=== PATIENT | female | born 1955 | race Caucasian/White ===

== ENCOUNTER 2019-05-01 06:46 | Day surgery (SDC) | payer BC ==
[2019-04-26 13:25] LABS: Absolute Lymphocytes (CBC) 2.6 K/uL (0.7-4.9); Hematocrit 38.2 % (36.0-45.0); Lymphocytes % 37.5 % (15.3-44.8); MPV 9.1 fL (7.6-11.3); RBC Red Blood Cell Count 4.07 M/uL (3.86-4.86)
[2019-04-26 13:35] LABS: Protime INR 0.96
[2019-04-26 13:39] LABS: BUN Blood Urea Nitrogen 18 mg/dL (7-18); Bicarbonate 29 mmol/L (21-32); Glucose Level 82 mg/dL (74-106); Potassium 4.1 mmol/L (3.5-5.1); Sodium Level 142 mmol/L (136-145)
--- NOTE | 2019-04-26 13:39 | RAD REPORT ---
EXAM DESCRIPTION: Sue Lundberg (2 Views)04/26/2019 1:19 pm CLINICAL HISTORY: Preop for cardiac catheterization COMPARISON: 2007 FINDINGS: The lungs appear clear of acute infiltrate. The heart is normal size IMPRESSION: No acute abnormalities displayed
--- OUTSIDE RECORDS SUMMARY | 2019-05-01 06:50 | XMS REPORT ---
:1955 Author Organization e[employer] Care Team Providers Name Role Phone Sun, Na Provider Role Unavailable Allergies No Known Allergies Problems Problem Type Condition Code Onset Dates Condition Status Problem COPD, mild J44.9 Active Problem Low thyroid stimulating hormone R94.6 Active (TSH) level Problem Alkaline phosphatase raised R74.8 Active Problem Other Alzheimer's disease G30.8 Active Problem Depression F32.9 Active Problem Need for Z23 Active xugunvmeea-zhumawa-eechkjrdi (Tdap) vaccine Problem Restless leg syndrome G25.81 Active Problem Hiatal hernia K44.9 Active Problem Dementia in other diseases F02.80 Active classified elsewhere without behavioral disturbance Problem Encounter for routine adult health Z00.00 Active examination without abnormal findings Problem Encounter for screening for Z12.31 Active malignant neoplasm of breast Problem Normal pelvic exam Z01.419 Active Problem Osteopenia of multiple sites M85.89 Active Problem Vitamin B12 deficiency E53.8 Active Problem Hypothyroidism E03.9 Active Problem Insomnia G47.00 Active Problem GERD (gastroesophageal reflux K21.9 Active disease) Problem Dementia without behavioral F03.90 Active disturbance, unspecified dementia type Problem Allergic rhinitis, seasonal J30.2 Active Problem Anxiety F41.9 Active Problem Liver hemangioma D18.03 Active Problem Elevated blood pressure reading R03.0 Active without diagnosis of hypertension Problem Former very heavy cigarette smoker Z87.891 Active (more than 40 per day) Medications Medication Code Code Instructions Start End Status Dosage System Date Date Levothyroxine [facility] 82059180387 100 MCG Orally Active 1 capsule Sodium Once a day on an empty stomach in the morning Results No Known Results Summary Purpose eClinicalWorks Submission
--- OUTSIDE RECORDS SUMMARY | 2019-05-01 06:50 | XMS REPORT ---
:1955 Author Organization e[employer] Care Team Providers Name Role Phone Sun, Na Provider Role Unavailable Allergies, Adverse Reactions, Alerts Substance Reaction Event Type Hydrocodone-Homatropine Info Not Available Drug Allergy Problems Problem Type Condition Code Onset Dates Condition Status Assessment Former very heavy cigarette smoker Z87.891 Active (more than 40 per day) Assessment Alkaline phosphatase raised R74.8 Active Assessment Vitamin B12 deficiency E53.8 Active Assessment Restless leg syndrome G25.81 Active Assessment Dementia without behavioral F03.90 Active disturbance, unspecified dementia type Assessment Anxiety F41.9 Active Problem Dementia without behavioral F03.90 Active disturbance, unspecified dementia type Assessment Low thyroid stimulating hormone R94.6 Active (TSH) level Problem Allergic rhinitis, seasonal J30.2 Active Assessment COPD, mild J44.9 Active Problem Former very heavy cigarette smoker Z87.891 Active (more than 40 per day) Problem Alkaline phosphatase raised R74.8 Active Problem COPD, mild J44.9 Active Problem Osteopenia of multiple sites M85.89 Active Problem Encounter for routine adult health Z00.00 Active examination without abnormal findings Problem Hiatal hernia K44.9 Active Problem Need for Z23 Active vpinovhcjw-qjaclnw-jmophoamt (Tdap) vaccine Assessment Hypothyroidism E03.9 Active Problem Encounter for screening for Z12.31 Active malignant neoplasm of breast Problem Low thyroid stimulating hormone R94.6 Active (TSH) level Problem Normal pelvic exam Z01.419 Active Problem Liver hemangioma D18.03 Active Problem Insomnia G47.00 Active Problem GERD (gastroesophageal reflux K21.9 Active disease) Problem Restless leg syndrome G25.81 Active Problem Depression F32.9 Active Problem Anxiety F41.9 Active Problem Elevated blood pressure reading R03.0 Active without diagnosis of hypertension Problem Vitamin B12 deficiency E53.8 Active Problem Hypothyroidism E03.9 Active Medications Medication Code Code Instructions Start End Status Dosage System Date Date ProAir [facility] [id number] 108 (90 Base) Active 2 puffs as RespiClick MCG/ACT needed Inhalation every 6 hrs Clobetasol [facility] 06618590809 0.05 % Active 1 application Propionate Externally to affected Twice a day area Zyrtec Allergy [facility] 46488324914 10 MG Orally Active 1 tablet Once a day Incruse Ellipta [facility] 16494079589 62.5 MCG/INH Active 1 puff Inhalation Once a day Vitamin D3 [facility] 57756699270 50,000 PO once Active one tab a week Levothyroxine [facility] 64782226993 125 MCG Orally Inactive 1 tablet on Sodium Once a day an empty stomach in the morning Namzaric [facility] 35189218357 28 mg/10 mg Apr Inactive 1 tab Orally daily 2017 Flonase [facility] 39454173131 50 MCG/ACT Active 1 spray in Nasally Once a each nostril day Alprazolam ND 17896440684 0.5 MG Orally May 04, Active 1 tablet Twice a day 2017 Levothyroxine [facility] 03956999490 100 MCG Orally Active 1 capsule on Sodium Once a day an empty stomach in the morning Gabapentin [facility] 67510110645 300 MG Orally Active 2 capsule Once a day before bedtime Vitamin B12 [facility] 66685539091 1000 MCG Active 1 tablet Orally Once a day Align [facility] 80116833715 - Orally Active not defined Requip [facility] 02113630287 0.5 MG Orally Active 1 tablet 1 to Once a day 3 hours before bedtime Venlafaxine HCl [facility] 61654690436 37.5 MG Orally Active 1 capsule ER Once a day with food Cymbalta [facility] 26573576391 60 MG Active TAKE ONE CAPSULE BY MOUTH EVERY DAY Mobic [facility] 52658135434 15 MG Orally Active 1 tablet Once a day ICaps Areds 2 [facility] 77064596710 - Orally Active not defined ProAir [facility] 23581763331 108 (90 Base) Active 2 puffs as RespiClick MCG/ACT needed Inhalation every 6 hrs Results No Known Results Summary Purpose eClinicalWorks Submission
--- OUTSIDE RECORDS SUMMARY | 2019-05-01 06:50 | XMS REPORT | Clinical Summary ---
:1955 Author Organization [facility] [employer] Address [address] [place] [id number] Care Team Providers Name Role Phone Asked, No Pcp Primary Care Provider Unavailable Allergies Not on File Medications Not on file Active Problems Not on file Encounters Date Type Specialty Care Team Description 04/02/2019 Hospital Encounter Radiology Bruce Hernandes MD Low back pain, unspecified back pain laterality, unspecified chronicity, with sciatica presence unspecified; Spinal stenosis, lumbar region, with neurogenic claudication 04/02/2019 Transcribe Orders Access Bruce Hernandes MD Low back pain, unspecified back pain laterality, unspecified chronicity, with sciatica presence unspecified (Primary Dx); Spinal stenosis, lumbar region, with neurogenic claudication after 04/30/2018 Social History Tobacco Use Types Packs/Day Years Used Date Never Assessed Sex Assigned at Date Recorded Not on file Job Start Date Occupation Industry Not on file Not on file Not on file Travel History Travel Start Travel End No recent travel history available. Last Filed Vital Signs Not on file Plan of Treatment Health Maintenance Due Date Last Done Comments CERVICAL CANCER SCREENING 1977 BREAST CANCER SCREENING 2006 COLONOSCOPY SCREENING 2006 SHINGLES VACCINES (#1) 2006 INFLUENZA VACCINE 04/11/2019 Procedures Procedure Name Priority Date/Time Associated Diagnosis Comments XR LUMBAR SPINE AP Routine 04/02/2019 12:34 Low back pain, Results for this LATERAL FLEXION PM CDT unspecified back pain procedure are in AND EXTENSION laterality, the results unspecified section. chronicity, with sciatica presence unspecified Spinal stenosis, lumbar region, with neurogenic claudication after 04/30/2018 Results XR Lumbar Spine Ap Lateral Flexion And Extension (04/02/2019 12:34 PM CDT) Specimen Narrative Performed At EXAMINATION: XR LUMBAR SPINE AP LATERALFLEXION AND EXTENSION [facility] CLINICAL HISTORY: M54.5 Low back pain, M48.062 Spinal stenosislumbar region with neurogenic claudication, M54.5 M48.062 COMPARISON:None IMPRESSION: 5 lumbar type vertebrae with the last fully formed disc at L5-S1. Grade 1 anterolisthesis L4 on L5 measuring 5 mm and L5 on S1 measuring 5 mm. No evidence of dynamic instability. Minimal right convex lumbar curvature. Multilevel facet arthrosis which appears most pronounced at L4-L5 and L5-S1. Vertebral body heights are maintained. Diffuse osteopenia. Minimal multilevel anterior endplate spurring. Vascular calcifications. [id number] Procedure Note Interface, Radiology Results - 04/02/2019 2:13 PM CDT EXAMINATION: XR LUMBAR SPINE AP LATERAL FLEXION AND EXTENSION CLINICAL HISTORY: M54.5 Low back pain, M48.062 Spinal stenosis lumbar region with neurogenic claudication, M54.5 M48.062 COMPARISON: None IMPRESSION: 5 lumbar type vertebrae with the last fully formed disc at L5-S1. Grade 1 anterolisthesis L4 on L5 measuring 5 mm and L5 on S1 measuring 5 mm. No evidence of dynamic instability. Minimal right convex lumbar curvature. Multilevel facet arthrosis which appears most pronounced at L4-L5 and L5-S1. Vertebral body heights are maintained. Diffuse osteopenia. Minimal multilevel anterior endplate spurring. Vascular calcifications. 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
--- OUTSIDE RECORDS SUMMARY | 2019-05-01 06:50 | XMS REPORT ---
:1955 Author Organization eClinicalWorks Care Team Providers Name Role Phone Sun, Na Provider Role Unavailable Allergies, Adverse Reactions, Alerts Substance Reaction Event Type Hydrocodone-Homatropine Info Not Available Drug Allergy Problems Problem Type Condition Code Onset Dates Condition Status Assessment Need for Z23 Active whapjdoxfh-jtovvbd-manpowovq (Tdap) vaccine Problem Dementia without behavioral F03.90 Active disturbance, unspecified dementia type Assessment Osteopenia of multiple sites M85.89 Active Problem Allergic rhinitis, seasonal J30.2 Active Assessment Normal pelvic exam Z01.419 Active Problem Former very heavy cigarette smoker Z87.891 Active (more than 40 per day) Problem Alkaline phosphatase raised R74.8 Active Problem COPD, mild J44.9 Active Problem Osteopenia of multiple sites M85.89 Active Problem Encounter for routine adult health Z00.00 Active examination without abnormal findings Problem Hiatal hernia K44.9 Active Problem Need for Z23 Active jbeazmjbru-mgpwulh-gczxzynae (Tdap) vaccine Assessment Encounter for routine adult health Z00.00 Active [...] End Status Dosage System Date Date ProAir [facility] 57251481644 108 (90 Base) Active 2 puffs as RespiClick MCG/ACT needed Inhalation every 6 hrs Cymbalta [facility] 10615609237 60 MG Orally Active 1 capsule Once a day Zyrtec Allergy [facility] 52736265643 10 MG Orally Active 1 tablet Once a day Namzaric [facility] 17272719605 28 mg/10 mg DecemberJun 17, Active 1 tab Orally daily 2017 Flonase [place] 85048542057 50 MCG/ACT Active 1 spray in Nasally Once a each nostril day Vitamin D3 ND 40591153031 50,000 PO once Active one tab a week Mobic ND 33679288780 15 MG Orally Active 1 tablet Once a day ICaps Areds 2 [facility] 65744072022 - Orally Active not defined Incruse Ellipta ND 03124935016 62.5 MCG/INH December Active 1 puff Inhalation , Once a day 2017 2018 ProAir [facility] 41221949693 108 (90 Base) December Active 2 puffs as RespiClick MCG/ACT 10, needed Inhalation 2017 every 6 hrs Vitamin B12 [facility] 64520262997 1000 MCG Active 1 tablet Orally Once a day Gabapentin ND 34135116451 300 MG Orally Active 2 capsule Once a day before bedtime Align [facility] 89261252537 - Orally Active not defined Clobetasol [facility] 31564532427 0.05 % Active 1 application Propionate Externally to affected Twice a day area Requip [facility] 49879719367 0.5 MG Orally Active 1 tablet 1 to Once a day 3 hours before bedtime Venlafaxine HCl [facility] 19820787463 37.5 MG Orally Active 1 capsule ER Once a day with food Levothyroxine ND 54646625618 100 MCG Orally December Active 1 capsule on Sodium Once a day 10, an empty 2017 stomach in the morning Results No Known Results Immunizations Vaccine Administration Date TDAP > 7 Years-Adacel February 01, 2018 Summary Purpose eClinicalWorks Submission
--- OUTSIDE RECORDS SUMMARY | 2019-05-01 06:50 | XMS REPORT ---
:1955 Author Organization eClinicalWorks Care Team Providers Name Role Phone Sun, Na Provider Role Unavailable Allergies, Adverse Reactions, Alerts Substance Reaction Event Type Hydrocodone-Homatropine Info Not Available Drug Allergy Problems Problem Type Condition Code Onset Dates Condition Status Assessment Dementia in other diseases F02.80 Active classified elsewhere without behavioral disturbance Assessment Influenza vaccination administered Z23 Active at current visit Assessment Other Alzheimer's disease G30.8 Active Assessment Former very heavy cigarette smoker Z87.891 Active (more than 40 per day) Assessment Alkaline phosphatase raised R74.8 Active Assessment Vitamin B12 deficiency E53.8 Active Assessment Restless leg syndrome G25.81 Active Assessment Anxiety F41.9 Active Assessment COPD, mild J44.9 Active Problem Liver hemangioma D18.03 Active Assessment Hypothyroidism E03.9 Active Problem Former very heavy cigarette smoker Z87.891 Active (more than 40 per day) Problem COPD, mild J44.9 Active Problem Low thyroid stimulating hormone R94.6 Active (TSH) level Problem Alkaline phosphatase raised R74.8 Active Problem Other Alzheimer's disease G30.8 Active Problem Need for Z23 Active xlvipttmsv-hauuofe-kftchkwbf (Tdap) vaccine Problem Depression F32.9 Active Problem Restless leg syndrome G25.81 Active Problem Dementia in other diseases F02.80 Active classified elsewhere without behavioral disturbance Problem Hiatal hernia K44.9 Active Problem Encounter for routine adult health [...] J30.2 Active Problem Anxiety F41.9 Active Problem Elevated blood pressure reading R03.0 Active without diagnosis of hypertension Medications Medication Code Code Instructions Start End Status Dosage System Date Date Align [facility] 68932100953 - Orally Active not defined Mobic [facility] 62255732219 15 MG Orally Active 1 tablet Once a day Clobetasol [facility] 69374797212 0.05 % Active 1 application Propionate Externally to affected Twice a day area ICaps Areds 2 [facility] 83230231508 - Orally Active not defined Vitamin D3 [facility] 32621912599 50,000 PO once Active one tab a week Cymbalta [facility] 96676182710 60 MG Active TAKE ONE CAPSULE BY MOUTH EVERY DAY Venlafaxine HCl [facility] 77471838202 37.5 MG Orally Active 1 capsule ER Once a day with food Zyrtec Allergy [facility] 27874918374 10 MG Orally Active 1 tablet Once a day Alprazolam [facility] 63617989547 0.5 MG Orally Active 1 tablet Twice a day ProAir [facility] 09133031276 108 (90 Base) Active 2 puffs as RespiClick MCG/ACT needed Inhalation every 6 hrs Requip [facility] 90999404737 0.5 MG Orally Active 1 tablet 1 to Once a day 3 hours before bedtime Levothyroxine [facility] 39788279080 125 MCG Orally Inactive 1 tablet on Sodium Once a day an empty stomach in the morning ProAir [facility] 15896012478 108 (90 Base) Active 2 puffs as RespiClick MCG/ACT needed Inhalation every 6 hrs Incruse Ellipta [facility] 39596983584 62.5 MCG/INH Active 1 puff Inhalation Once a day Flonase [facility] 50055818960 50 MCG/ACT Active 1 spray in Nasally Once a each nostril day Galantamine [facility] 58348724678 8 MG Orally Aug 06, Active 1 tablet with Hydrobromide Twice a day 2018 meals Cymbalta [facility] 33219293705 60 MG Active TAKE ONE CAPSULE BY MOUTH EVERY DAY Levothyroxine ND 98645307578 100 MCG Orally Active 1 capsule on Sodium Once a day an empty stomach in the morning Vitamin B12 [facility] 27909654970 1000 MCG Active 1 tablet Orally Once a day Gabapentin [facility] 54541772264 300 MG Orally Active 2 capsule Once a day before bedtime Levothyroxine ND 64843267959 100 MCG Orally Active 1 capsule on Sodium Once a day an empty stomach in the morning Results No Known Results Immunizations Vaccine Administration Date Afluria Aug 06, 2018 Summary Purpose eClinicalWorks Submission
--- OUTSIDE RECORDS SUMMARY | 2019-05-01 06:51 | XMS REPORT ---
[...] F32.9 Active Problem Need for Z23 Active trojrsnckj-fdfjlfz-jidjmrmlj (Tdap) vaccine Problem Restless leg syndrome G25.81 [...] type Problem Allergic rhinitis, seasonal J30.2 Active Assessment Dementia in other diseases F02.80 Active classified elsewhere without behavioral disturbance Problem Anxiety F41.9 Active Problem Liver hemangioma D18.03 Active Problem Elevated blood pressure reading R03.0 Active without diagnosis of hypertension Problem Former very heavy cigarette smoker Z87.891 Active (more than 40 per day) Medications Medication Code Code Instructions Start End Status Dosage System Date Date Galantamine [facility] 19315685115 8 MG Orally Aug 06, Active 1 tablet Hydrobromide Twice a day 2017 with meals Results No Known Results Summary Purpose eClinicalWorks Submission
--- OUTSIDE RECORDS SUMMARY | 2019-05-01 06:51 | XMS REPORT ---
:1955 Author Organization eClinicalWorks Care Team Providers Name Role Phone Sun, Na Provider Role Unavailable Allergies No Known Allergies Problems Problem Type Condition Code Onset Dates Condition Status Problem Hiatal hernia K44.9 Active Problem COPD, mild J44.9 Active Problem Alkaline phosphatase raised R74.8 Active Problem Restless leg syndrome G25.81 Active Problem Low thyroid stimulating hormone R94.6 Active (TSH) level Problem Encounter for routine adult health Z00.00 Active examination without abnormal findings Problem Encounter for screening for Z12.31 Active malignant neoplasm of breast Problem Macular degeneration of left eye, H35.30 Active unspecified type Problem Dementia in other diseases F02.80 Active classified elsewhere without behavioral disturbance Problem GERD (gastroesophageal reflux K21.9 Active disease) Problem Insomnia G47.00 Active Problem Osteoarthritis of multiple joints, M15.9 Active unspecified osteoarthritis type Problem Depression F32.9 Active Problem Normal pelvic exam Z01.419 Active Problem Osteopenia of multiple sites M85.89 Active Problem Other Alzheimer's disease G30.8 Active Problem Need for Z23 Active ezqhsjrydn-wyxrwlh-ibrdsmeyk (Tdap) vaccine Problem Anxiety F41.9 Active Problem Allergic rhinitis, seasonal J30.2 Active Problem Vitamin B12 deficiency E53.8 Active Problem Hypothyroidism E03.9 Active Problem Liver hemangioma D18.03 Active Problem Former very heavy cigarette smoker Z87.891 Active (more than 40 per day) Problem Elevated blood pressure reading R03.0 Active without diagnosis of hypertension Problem Dementia without behavioral F03.90 Active disturbance, unspecified dementia type Medications Medication Code Code Instructions Start End Date Status Dosage System Date Diclofenac [facility] 16525219152 75 MG Orally November 26December Active 1 tablet Sodium Twice a day 2018 with food or milk Results No Known Results Summary Purpose eClinicalWorks Submission
--- OUTSIDE RECORDS SUMMARY | 2019-05-01 06:51 | XMS REPORT ---
:1955 Author Organization [employer] Care Team Providers Name Role Phone Sun, Na Provider Role Unavailable Allergies, Adverse Reactions, Alerts Substance Reaction Event Type Hydrocodone-Homatropine Info Not Available Drug Allergy Problems Problem Type Condition Code Onset Dates Condition Status Assessment Spinal stenosis of lumbar region, M48.061 Active unspecified whether neurogenic claudication present Assessment Other Alzheimer's disease G30.8 Active Assessment Osteoarthritis of multiple joints, M15.9 Active unspecified osteoarthritis type Assessment Restless leg syndrome G25.81 Active Assessment Dementia in other diseases F02.80 Active classified elsewhere without behavioral disturbance Assessment Anxiety F41.9 Active Assessment Hypothyroidism E03.9 Active Assessment COPD, mild J44.9 Active Problem Hiatal hernia K44.9 Active Problem COPD, [...] G30.8 Active Problem Need for Z23 Active qbgpedpelg-hgcexvg-sfieyqtwz (Tdap) vaccine Assessment Macular degeneration of left eye, H35.30 Active unspecified type Problem Anxiety F41.9 Active Assessment Dermatitis of external ear L30.9 Active Problem Allergic rhinitis, seasonal J30.2 Active Problem Vitamin B12 deficiency E53.8 Active Assessment Vitamin B12 deficiency E53.8 Active Problem Hypothyroidism E03.9 Active Problem Liver hemangioma D18.03 Active Problem Former very heavy cigarette smoker Z87.891 Active (more than 40 per day) Problem Elevated blood pressure reading R03.0 Active without diagnosis of hypertension Problem Dementia without behavioral F03.90 Active disturbance, unspecified dementia type Medications Medication Code Code Instructions Start End Status Dosage System Date Date Clobetasol [facility] 10018566115 0.05 % Active 1 application Propionate Externally to affected Twice a day area Vitamin B12 [facility] 38556213056 1000 MCG Orally Active 1 tablet Once a day Gabapentin [facility] 46892091317 300 MG Orally Active 2 capsule Once a day before bedtime Cymbalta [facility] 62368573064 60 MG Active TAKE ONE CAPSULE BY MOUTH EVERY DAY Venlafaxine HCl [facility] 00040803782 37.5 MG Orally Active 1 capsule ER Once a day with food Levothyroxine [facility] 33004511645 100 MCG Orally Active 1 capsule on Sodium Once a day an empty stomach in the morning Cymbalta [facility] 67024472251 60 MG Active TAKE ONE CAPSULE BY MOUTH EVERY DAY ICaps Areds 2 [facility] 70894493543 - Orally Active not defined Vitamin D3 [facility] 80763384125 50,000 PO once Active one tab a week Mobic [facility] 17758120164 15 MG Orally Active 1 tablet Once a day ProAir [facility] 43368264626 108 (90 Base) Active 2 puffs as RespiClick MCG/ACT needed Inhalation every 6 hrs Flonase [facility] 30708946210 50 MCG/ACT Active 1 spray in Nasally Once a each nostril day Zyrtec Allergy [facility] 39624551644 10 MG Orally Active 1 tablet Once a day Requip [facility] 62981972971 0.5 MG Orally Active 1 tablet 1 to Once a day 3 hours before bedtime Requip [facility] 00806283397 0.5 MG Orally Active 1 tablet 1 to Once a day 3 hours before bedtime Galantamine [facility] 61057739935 8 MG Orally Active 1 tablet with Hydrobromide Twice a day meals Incruse Ellipta [facility] 64000217763 62.5 MCG/INH May Active 1 puff Inhalation Once , a day 2019 Alprazolam [facility] 83123402106 0.5 MG Orally Active 1 tablet Twice a day Align [facility] 26099956713 - Orally Active not defined ProAir [facility] 41666147250 108 (90 Base) Active 2 puffs as RespiClick MCG/ACT needed Inhalation every 6 hrs Levothyroxine [place] 66817388400 100 MCG Orally Active 1 capsule on Sodium Once a day an empty stomach in the morning Diclofenac [facility] 20126098094 1 % Transdermal Active 2gram to Sodium Three times a affected area day prn pain Results No Known Results Summary Purpose [employer]ClinicalWorks Submission
--- OUTSIDE RECORDS SUMMARY | 2019-05-01 06:51 | XMS REPORT ---
:1955 Author Organization [employer] Care Team Providers Name Role Phone Sun, Na Provider Role Unavailable Allergies, Adverse Reactions, Alerts Substance Reaction Event Type Hydrocodone-Homatropine Info Not Available Drug Allergy Problems Problem Type Condition Code Onset Dates Condition Status Assessment Alkaline phosphatase raised R74.8 Active Assessment Dementia in other diseases F02.80 Active classified elsewhere without behavioral disturbance Assessment Other Alzheimer's disease G30.8 Active Assessment COPD, mild J44.9 Active Assessment Restless leg syndrome G25.81 Active Assessment Osteoarthritis of multiple joints, M15.9 Active unspecified osteoarthritis type Assessment Anxiety F41.9 Active Assessment Hypothyroidism E03.9 Active Problem Hiatal hernia K44.9 Active Problem [...] G30.8 Active Problem Need for Z23 Active spcirdmesg-rwaylbn-eqjfxgsws (Tdap) vaccine Assessment Dermatitis of external ear L30.9 Active Problem Anxiety F41.9 Active Assessment Oral mucosal lesion K13.70 Active Problem Allergic rhinitis, seasonal J30.2 Active Assessment Vitamin B12 deficiency E53.8 Active Problem Vitamin B12 deficiency E53.8 Active Assessment Macular degeneration of left eye, H35.30 Active unspecified type Problem Hypothyroidism E03.9 Active Problem Liver hemangioma D18.03 Active Problem Former very heavy cigarette smoker Z87.891 Active (more than 40 per day) Problem Elevated blood pressure reading R03.0 Active without diagnosis of hypertension Problem Dementia without behavioral F03.90 Active disturbance, unspecified dementia type Medications Medication Code Code Instructions Start End Status Dosage System Date Date Levothyroxine [facility] 14368739852 100 MCG Orally Active 1 capsule on Sodium Once a day an empty stomach in the morning Clobetasol [facility] 86908112344 0.05 % Sept Active 1 application Propionate Externally 04, to affected Twice a day 2019 area ProAir [facility] 09291391316 108 (90 Base) Active 2 puffs as RespiClick MCG/ACT needed Inhalation every 6 hrs Galantamine [facility] 72438916842 8 MG Orally Active 1 tablet with Hydrobromide Twice a day meals Flonase [facility] 15563290792 50 MCG/ACT Active 1 spray in Nasally Once a each nostril day ProAir [facility] 79282017962 108 (90 Base) Active 2 puffs as RespiClick MCG/ACT needed Inhalation every 6 hrs Gabapentin [facility] 53374930583 300 MG Orally Active 2 capsule Once a day before bedtime Requip [facility] 54226651520 0.5 MG Orally Active 1 tablet 1 to Once a day 3 hours before bedtime Cymbalta [facility] 47777668393 60 MG Active TAKE ONE CAPSULE BY MOUTH EVERY DAY Venlafaxine HCl [facility] 99510269968 37.5 MG Orally Active 1 capsule ER Once a day with food Align [facility] 31718582356 - Orally Active not defined Cymbalta [facility] 58082274388 60 MG Active TAKE ONE CAPSULE BY MOUTH EVERY DAY Vitamin D3 [facility] 49183405211 50,000 PO once Active one tab a week Mobic [facility] 99840574357 15 MG Orally Active 1 tablet Once a day ICaps Areds 2 [facility] 93089003417 - Orally Active not defined Incruse Ellipta [facility] 30785561216 62.5 MCG/INH Active 1 puff Inhalation Once a day Diclofenac [facility] 35228933998 1 % Transdermal March Active 2gram to Sodium Three times a 08, affected area day prn pain 2019 Vitamin B12 [facility] 84953560423 1000 MCG Orally Active 1 tablet Once a day Alprazolam [place] 51600109936 0.5 MG Orally Active 1 tablet Twice a day Levothyroxine [facility] 72063843723 100 MCG Orally Active 1 capsule on Sodium Once a day an empty stomach in the morning Requip [facility] 14544404415 0.5 MG Orally Active 1 tablet 1 to Once a day 3 hours before bedtime Zyrtec Allergy [facility] 82412079946 10 MG Orally Active 1 tablet Once a day Results No Known Results Summary Purpose [employer]ClinicalWorks Submission
[2019-05-01] MEDS ORDERED: HEPA 1000U/500MLS 2,000 UNIT/1,000 ML BAG IV ONE (07:11)
[2019-05-01] MEDS ORDERED: LIDOCAINE 1% MPF 30 ML VIAL ONE (07:11)
[2019-05-01] MEDS ORDERED: NA CHLORIDE 0.9% 500 ML ONE (07:13)
[2019-05-01] MEDS ORDERED: NITROGLYCERIN 100 MCG/ML SYR (for cath lab use only) IV ONE (07:45)
[2019-05-01] MEDS ORDERED: NICARDIPINE HCL 25 MG/10 ML IV ONE (07:45)
[2019-05-01] MEDS ORDERED: HEPARIN 5000 UNIT/ML 1 ML VIAL ONE (07:45)
[2019-05-01] MEDS ORDERED: FENTANYL CITR 100 MCG/2 ML ONE (07:45)
[2019-05-01] MEDS ORDERED: MIDAZOLAM HCL 2 MG/2 ML INJ ONE ×2 (07:45→07:54)
[2019-05-01] MEDS ORDERED: ATROPINE SULF 1 MG/10 ML SYR IV ONE (07:45)
[2019-05-01] MEDS ORDERED: NITROGLYCERIN/D5W 25 MG/250 ML BTL IV ONE (07:46)
[2019-05-01] MEDS ORDERED: NA CHLORIDE 0.9% 0 ML ONE (07:46)
--- NOTE | 2019-05-01 19:23 | OP ---
Surgeon: Sam Myers MD Identifying Data: A 63-year-old woman. Procedure: Left heart catheterization with coronary left ventricular angiography. Indication: Abnormal Cardiolite stress test. Procedure Findings: The patient has minimal coronary plaque. No significant stenosis. Her left eri tricular ejection fraction normal. Left ventricular end-diastolic pressure 9. No mitral regurgitati on. No aortic stenosis. Normal pressures. Normal cardiac cath. In other words, a false-positive C ardiolite stress test. She is a low risk patient for undergoing noncardiac surgery and she should lin ve aggressive risk factor control with a goal of 70 mmHg. Procedure In Detail: The patient was brought to the cardiac malthouse laborer in a fasting state. She gave i nformed consent. Right radial approach was used. The tissues around the right radial artery were an esthetized with 1% lidocaine. She received Versed and fentanyl, titrated to an adequate level of sed ation. The right radial artery was entered using a 21-gauge needle, cannulated with a 0.021 inch ady meter guidewire and then a 6-[place] TerumPillGuard radial sheath was placed. The sheath was flushed and the radial cocktail was given consisting of nicardipine, heparin, and nitroglycerin. We guided a TIG cat heter into the ascending aorta using a short radius J-tip Glidewire and fluoroscopy. We used a TIG c atheter to angiogram left coronary, right coronary, and left ventricle, all without problems. The ca theter was then removed over a wire. The sheath was flushed, removed, and a TR band was used to clos e the arteriotomy. Complications: Complications from the procedure none. Public Events Facilities Rental Manager: Imelda York. Estimated Blood Loss: 10 mL. BERENICE/LAMAR Voice ID: [id number] Report ID: [id number]
== END 2019-05-01 10:27 | disposition home or self-care (01) ==
LOC: CCL 06:46
PROVIDERS: ATTEND Internal Medicine
DX: R94.39 Abnormal result of other cardiovascular function study (principal); I20.8 Other forms of angina pectoris; E03.9 Hypothyroidism, unspecified; Z87.891 Personal history of nicotine dependence
CPT/HCPCS: 85025; 80048; 36415; 85610; 85730; 71046; 93458; C1893; J1644; J2250 ×2; J3010; J0583